=== PATIENT | male | born 1955 | race Two or more races ===

== ENCOUNTER 2025-02-22 23:15 | Emergency (ER) | payer OTHER ==
[~2025-02-22] VITALS: Ht 152.4 cm; Wt 72.6 kg
[2025-02-22] MEDS ORDERED: CEFAZOLIN SODIUM 1,000 MG VIAL IM STA (23:33)
[2025-02-22] MEDS ORDERED: DEXAMETHASONE SODIUM PHOSPHATE 4 MG/ML VIAL IM STA (23:33)
== END 2025-02-23 01:30 | disposition home or self-care (01) ==
LOC: ER 23:15
DX: T14.8XXA Other injury of unspecified body region, initial encounter (principal); Y08.89XA Assault by other specified means, initial encounter; Y93.89 Activity, other specified; Y92.018 Other place in single-family (private) house as the place of occurrence of the external cause